=== PATIENT | male | born 1965 | race African-American/Black ===

== ENCOUNTER → 2018-07-30 | Outpatient (CLI) | payer MEDICAID, OTHER ==
[2018-07-30 16:29] LABS: CALCIUM 9.5 mg/dL (8.5-10.1); CREATININE 2.1 mg/dL (0.7-1.3); GFR 40.2; POTASSIUM 4.4 mmol/L (3.5-5.1)
== END | disposition home or self-care (01) ==
LOC: LAB 15:49
DX: I27.21 Secondary pulmonary arterial hypertension (principal); R60.9 Edema, unspecified; Z79.899 Other long term (current) drug therapy
CPT/HCPCS: 36415; 80048